=== PATIENT | male | born 1975 | race Caucasian/White ===

== ENCOUNTER → 2017-02-23 | Outpatient (REF) ==
[~2017-02-23] MED LIST: NO HOME MEDICATIONS; NORCO 325 MG-51 TAB PO
[2017-02-23 15:22] LABS: PSA-TOTAL 0.64 ng/mL (0-4); THYROID STIMULATING HORMONE 2.03 uIU/mL (0.465-4.680)
== END ==
LOC: ZLAB.WCH 14:24
PROVIDERS: Internal Medicine
DX: Z01.89 Encounter for other specified special examinations (principal)
CPT/HCPCS: G0103

== ENCOUNTER → 2018-02-27 | Outpatient (REF) ==
[2018-02-27 17:59] LABS: THYROID STIMULATING HORMONE 2.62 uIU/mL (0.465-4.680)
[2018-02-27 18:57] LABS: PSA-TOTAL 0.6 ng/mL (0-4)
== END ==
LOC: ZLAB.WCH 16:09
PROVIDERS: Internal Medicine
DX: Z01.89 Encounter for other specified special examinations (principal)
CPT/HCPCS: G0103